=== PATIENT | female | born 1980 | race Caucasian/White ===

== ENCOUNTER 2021-12-28 20:04 | Emergency (ER) | payer BC ==
--- NOTE | 2021-12-28 21:05 | ER ---
Nurse's Notes [facility] Name: Nicole Montalvo Age: 40 yrs Sex: Female : 1980 Arrival Date: 12/28/2021 Time: 20:06 Bed 20 Private MD: Diagnosis: Blurry vision Presentation: 12/28 20:33 Chief complaint: Patient states: was seen at urgent care 2 weeks ago for cough and kr3 congestion, given meds but her eye became red after 1 1/2 weeks, returned to urgent care and was given polymyxin B sulfate \T\ trimethoprim eye drops. Now the patient is having blurred vision in the R eye along with a weird feeling in the right arm. Coronavirus screen: Vaccine status: Patient reports receiving the 2nd dose of the covid vaccine. Client denies travel out of the [place] in the last 14 days. Ebola Screen: Patient denies travel to an Ebola-affected area in the 21 days before illness onset. Initial Sepsis Screen: Does the patient meet any 2 criteria? No. Patient's initial sepsis screen is negative. Does the patient have a suspected source of infection? No. Patient's initial sepsis screen is negative. Risk Assessment: Do you want to hurt yourself or someone else? Patient reports no desire to harm self or others. Onset of symptoms was December 28, 2021. 20:33 Method Of Arrival: Ambulatory kr3 20:33 Acuity: MARY 3 kr3 Triage Assessment: 20:38 General: Appears in no apparent distress. comfortable, Behavior is calm, cooperative, kr3 appropriate for age. Pain: Denies pain. Historical: - Allergies: 20:37 No Known Allergies; kr3 - PMHx: 20:37 None; kr3 - PSHx: 20:37 Tonsillectomy; kr3 - Immunization history:: Adult Immunizations not up to date. - Social history:: Smoking status: Patient denies any tobacco usage or history of. Screenin:11 Abuse screen: Denies threats or abuse. Nutritional screening: No deficits noted. vc1 Tuberculosis screening: No symptoms or risk factors identified. Fall Risk None identified. Vital Signs: 20:33 BP 157 / 105; Pulse 70; Resp 18; Temp 98.4; Pulse Ox 100% on R/A; Weight 83.91 kg; kr3 Height 5 ft. 6 in. (167.64 cm); Pain 0/10; 20:33 Body Mass Index 29.86 (83.91 kg, 167.64 cm) kr3 ED Course: 20:06 Patient arrived in ED. as 20:27 Valentine Blount, RN is Primary Nurse. vc1 20:37 Triage completed. kr3 20:38 Arm band placed on right wrist. Patient placed in an exam room, on a stretcher. kr3 20:41 Rosalino Will DO is Attending Physician. ms3 21:00 Pulse ox on. NIBP on. vc1 21:00 Patient has correct armband on for positive identification. Bed in low position. vc1 21:11 No provider procedures requiring assistance completed. Patient did not have IV access vc1 during this emergency room visit. Administered Medications: No medications were administered Medication: 21:12 VIS not applicable for this client. vc1 Outcome: 21:04 Discharge ordered by MD. ms3 21:11 Discharged to home ambulatory. vc1 21:11 Condition: good 21:11 Discharge instructions given to patient, Instructed on discharge instructions, follow up and referral plans. Demonstrated understanding of instructions, follow-up care. 21:12 Patient left the ED. vc1 Signatures: Aviva Pham as Rosalino Will DO DO ms3 Valentine Blount, JIMY RN vc1 Tiff Calhoun RN RN kr3
[2021-12-28 21:39] VITALS: BP 157/105; TEMP 98.4; O2SAT 100
--- NOTE | 2021-12-29 21:12 | EDPHYS ---
Physician Documentation [facility] Name: Nicole Montalvo Age: 40 yrs Sex: Female : 1980 Arrival Date: 12/28/2021 Time: 20:06 Bed 20 Private MD: ED Physician Rosalino Will HPI: 12/28 21:04 This 40 yrs old Female presents to ER via Ambulatory with complaints of Blurred Vision, ms3 High Blood Pressure. 21:04 40-year-old female with no past medical history presents for blurry vision in her right ms3 eye. Patient states 2 weeks ago she was [facility] for sore throat and ear pain and was started on steroids. Patient states on Thursday she developed red eyes and went to [facility] and was prescribed antibiotics with steroid eyedrops. Patient states she returned to urgent care [facility] and was instructed to come to the emergency department. Patient denies pain in her right eye. Patient states her vision seems to be blurry in the right eye. Patient denies alleviating or inciting factors. Onset: The symptoms/episode began/occurred 3 day(s) ago. Severity of symptoms: At their worst the symptoms were moderate in the emergency department the symptoms are unchanged Pain is currently a 0 / 10. Historical: - Allergies: 20:37 No Known Allergies; kr3 - PMHx: 20:37 None; kr3 - PSHx: 20:37 Tonsillectomy; kr3 - Immunization history:: Adult Immunizations not up to date. - Social history:: Smoking status: Patient denies any tobacco usage or history of. ROS: 21:04 Constitutional: Negative for fever, and chills. ms3 21:04 Neck: Negative for injury, pain, and swelling, Respiratory: Negative for shortness of breath, cough, wheezing, and pleuritic chest pain, Abdomen/GI: Negative for abdominal pain, nausea, vomiting, diarrhea, and constipation, MS/Extremity: Negative for injury and deformity, Skin: Negative for injury, rash, and discoloration. 21:04 Eyes: Positive for blurry vision. 21:04 All other systems are negative. Exam: 21:04 Constitutional: This is a well developed, well nourished patient who is awake, alert, ms3 and in no acute distress. Head/Face: Normocephalic, atraumatic. Neck: Trachea midline, no cervical lymphadenopathy. Supple, full range of motion without nuchal rigidity, or vertebral point tenderness. No Meningismus. Chest/axilla: Normal chest wall appearance and motion. Nontender with no deformity. Cardiovascular: Regular rate and rhythm with a normal S1 and S2. No gallops, murmurs, or rubs. Normal PMI, no JVD. No pulse deficits. Respiratory: Lungs have equal breath sounds bilaterally, clear to auscultation and percussion. No rales, rhonchi or wheezes noted. No increased work of breathing, no retractions or nasal flaring. Abdomen/GI: Soft, non-tender, with normal bowel sounds. No distension or tympany. No guarding or rebound. No evidence of tenderness throughout. Skin: Warm, dry with normal turgor. Normal color with no rashes, no lesions, and no evidence of cellulitis. MS/ Extremity: Pulses equal, no cyanosis. Neurovascular intact. Full, normal range of motion. 21:04 Eyes: Periorbital structures: appear normal, Pupils: equal, round, and reactive to light and accomodation, Extraocular movements: no acute changes, Conjunctiva: normal, Visual wood: are intact, 20/40 bilateral, right, left eye. Vital Signs: 20:33 BP 157 / 105; Pulse 70; Resp 18; Temp 98.4; Pulse Ox 100% on R/A; Weight 83.91 kg; kr3 Height 5 ft. 6 in. (167.64 cm); Pain 0/10; 20:33 Body Mass Index 29.86 (83.91 kg, 167.64 cm) kr3 MDM: 20:59 Patient medically screened. ms3 21:04 Data reviewed: vital signs, nurses notes, and as a result, I will discharge patient. ms3 Counseling: I had a detailed discussion with the patient and/or guardian regarding: the historical points, exam findings, and any diagnostic results supporting the discharge/admit diagnosis, the need for outpatient follow up, to return to the emergency department if symptoms worsen or persist or if there are any questions or concerns that arise at home. Special discussion: I discussed with the patient/guardian in detail that at this point there is no indication for admission to the hospital. It is understood, however, that if the symptoms persist or worsen the patient needs to return immediately for re-evaluation. Administered Medications: No medications were administered Disposition Summary: 12/28/21 21:04 Discharge Ordered Location: Home ms3 Condition: Stable ms3 Diagnosis - Blurry vision ms3 Followup: ms3 - With: Private Physician - When: 2 - 3 days - Reason: Recheck today's complaints Discharge Instructions: - Discharge Summary Sheet ms3 - Blurred Vision, Adult ms3 Forms: - Medication Reconciliation Form ms3 - Thank You Letter ms3 - Antibiotic Education ms3 - Prescription Opioid Use ms3 Signatures: Rosalino Will, DO ms3 Tiff Calhoun RN RN kr3
== END 2021-12-28 21:12 | disposition home or self-care (01) ==
LOC: ER 20:04
DX: H53.8 Other visual disturbances (principal)
CPT/HCPCS: 99283